=== PATIENT | male | born 1970 | race Caucasian/White ===

== ENCOUNTER 2016-11-25 06:05 | Emergency (ER) | payer MEDICAID ==
[~2016-11-25] VITALS: Ht 175.3 cm; Wt 82.5 kg
[2016-11-25 06:53] VITALS: BP 125/80
== END 2016-11-25 06:53 | disposition home or self-care (01) ==
LOC: ED 06:05
DX: S83.92XA Sprain of unspecified site of left knee, initial encounter (principal); X58.XXXA Exposure to other specified factors, initial encounter; Y93.89 Activity, other specified; Y92.89 Other specified places as the place of occurrence of the external cause; Y99.8 Other external cause status

== ENCOUNTER 2017-12-28 00:52 | Emergency (ER) | payer MEDICAID ==
[~2017-12-28] VITALS: Ht 167.6 cm; Wt 85.0 kg
[2017-12-28 00:59] VITALS: Ht 167.6 cm; Wt 85.0 kg
[2017-12-28 01:11] VITALS: BP 156/81
== END 2017-12-28 01:11 | disposition home or self-care (01) ==
LOC: ED 00:52
DX: K03.81 Cracked tooth (principal); K04.7 Periapical abscess without sinus; R03.0 Elevated blood-pressure reading, without diagnosis of hypertension

== ENCOUNTER 2018-03-02 20:55 | Emergency (ER) | payer MEDICAID ==
[~2018-03-02] VITALS: Ht 162.6 cm; Wt 77.1 kg
[2018-03-02 21:05] VITALS: Ht 162.6 cm; Wt 77.1 kg
[2018-03-02 22:19] LABS: PLATELET COUNT 237 x10^3mcL (130-400); RED CELL DISTRIBUTION WIDTH 13.5 % (11.5-14.5)
[2018-03-02 22:27] LABS: BASOPHIL % 3.1 % (0-2)
[2018-03-02 22:28] LABS: CALCIUM 8.9 mg/dL (8.5-10.1); CARBON DIOXIDE 26.5 mmol/L (21-32); CHLORIDE SERUM 104 mmol/L (98-107); CREATININE SERUM 0.8 mg/dL (0.7-1.3); GFR1 > 60 mL/min; GLUCOSE SERUM 94 mg/dL (74-106); POTASSIUM SERUM 3.9 mmol/L (3.5-5.1); SODIUM SERUM 139 mmol/L (136-145)
[2018-03-02 22:32] LABS: ALBUMIN 3.7 g/dL (3.4-5.0); ALKALINE PHOSPHATASE 67 U/L (46-116); ALT/SGPT 28 U/L (16-63); AST/SGOT 23 U/L (15-37); BILIRUBIN TOTAL 0.2 mg/dL (0.20-1.00)
[2018-03-02 22:34] LABS: AMPHETAMINE QUAL UR NONE DETECTED (See below)
[2018-03-02 23:54] VITALS: BP 121/76
== END 2018-03-02 23:54 | disposition home or self-care (01) ==
LOC: ED 20:55
PROVIDERS: Emergency Medicine
DX: R42 Dizziness and giddiness (principal); R51 Headache; H53.8 Other visual disturbances
CPT/HCPCS: 36415; J8597

== ENCOUNTER 2019-09-03 17:47 | Emergency (ER) | payer MEDICAID ==
[~2019-09-03] VITALS: Ht 165.1 cm; Wt 88.9 kg
[2019-09-03 17:56] VITALS: Ht 165.1 cm; Wt 88.9 kg
[2019-09-03 18:58] LABS: BASOPHIL % 1.4 % (0-2); PLATELET COUNT 224 x10^3mcL (130-400); RED CELL DISTRIBUTION WIDTH 13.1 % (11.5-14.5)
[2019-09-03 19:05] LABS: CALCIUM 9.1 mg/dL (8.5-10.1); CARBON DIOXIDE 27.3 mmol/L (21-32); CHLORIDE SERUM 106 mmol/L (98-107); CREATININE SERUM 0.9 mg/dL (0.7-1.3); GFR1 > 60 mL/min; GLUCOSE SERUM 122 mg/dL (74-106); POTASSIUM SERUM 3.7 mmol/L (3.5-5.1); SODIUM SERUM 139 mmol/L (136-145)
[2019-09-03 19:17] LABS: ALBUMIN 3.8 g/dL (3.4-5.0); ALKALINE PHOSPHATASE 73 U/L (46-116); ALT/SGPT 46 U/L (16-63); AST/SGOT 28 U/L (15-37)
[2019-09-03 20:32] VITALS: BP 116/59
== END 2019-09-03 20:32 | disposition home or self-care (01) ==
LOC: ED 17:47
PROVIDERS: Emergency Medicine
DX: F41.9 Anxiety disorder, unspecified (principal); G47.00 Insomnia, unspecified; G62.9 Polyneuropathy, unspecified
CPT/HCPCS: 36415; Q0092